=== PATIENT | female | born 1955 | race Two or more races ===

== ENCOUNTER 2018-01-19 10:53 | Outpatient (CLI) | payer MEDICARE, OTHER ==
[~2018-01-19] VITALS: Ht 157.5 cm; Wt 65.3 kg
[2018-01-19] MEDS ORDERED: ATORVASTATIN CA10 MG ORAL (13:14)
[2018-01-19] MEDS ORDERED: LEXAPRO10 MG ORAL (13:14)
[2018-01-19 13:16] VITALS: BP 149/84
--- NOTE | 2018-01-19 14:47 | GI Initial Consult Note ---
History of Present Illness General Date patient seen: Jan 19, 2018 Time patient seen: 14:41 Referring physician: ALIRIO Reason for Consultation: ABDOMINAL PAIN Present Illness HPI 62 year old pleasant female patient presents today with RLQ with occasional LLQ abdominal pain over a period of a month. The patient denies any recent travels. Denies any unintentional weight loss or changes in dietary habits. Denies any diarrhea. States she has complaint of abdominal gas. The patient has no history of endoscopy / colonoscopy. She was recently admitted to [facility] and had an abdominal US performed which was reviewed and found to be unremarkable. No signs of abuse or neglect. Patient is not fall risk. Home Meds Reported Medications Escitalopram Oxalate* (LEXAPRO*) 10 Mg Tablet, ORAL DAILY, TAB 01/19/18 Atorvastatin Calcium* (LIPITOR*) 10 Mg Tablet, ORAL BEDTIME, TAB 01/19/18 Med list reviewed/reconciled: Yes Allergies: Coded Allergies: No Known Allergies (Unverified , 01/19/18) Patient History History Provided By: Patient, Medical Record PM Narrative Depression HLD Past Surgical History: Hemorrhoidal Surgery 2002 Family History Narrative Father with brain CA Mother with Pancreatic CA Social History: Reports: other - daily coffee; Denies: smoking, alcohol use, drug use Review of Systems All Other Systems: negative except mentioned in HPI Physical Exam Vital Signs Date Time Temp Pulse Resp B/P (MAP) Pulse Ox O2 Delivery O2 Flow Rate FiO2 01/19/18 13:16 98.3 68 149/84 95 98.3 Sp02 EP Interpretation: reviewed, normal General Appearance: well appearing, no apparent distress, alert Head: normocephalic EENT: PERRL/EOMI, normal ENT inspection Neck: supple Respiratory: normal breath sounds, no respiratory distress Cardiovascular: normal rate Gastrointestinal: normal inspection, non tender, soft, normal bowel sounds, non -distended Rectal: deferred Genitourinary: no CVA tenderness Musculoskeletal: normal inspection, back normal Neurologic: normal inspection, alert, oriented x3, responsive Psychiatric: normal inspection, judgement/insight normal, memory normal Skin: normal inspection, normal color, no rash, warm/dry, palpation normal, well hydrated Lymphatic: normal inspection, no adenopathy GI: Plan Problems: (1) Colonoscopy planned (2) Bloating symptom (3) Abdominal pain (4) HLD (hyperlipidemia) (5) Depression Plan trial VSL #3 recommend patient to have initial colonoscopy, will schedule at future date if patient agrees. RTC x [address] Fong. Thank you for this patient referral, we will follow. The patient was seen and examined at bedside and all new and available data was reviewed in the patients chart. I agree with the above findings, impression and plan. (Patient seen earlier today. Signature stamp does not reflect patient encounter time.). - MD Janice CrewsE[facility] Hospital[facility] DIRECTOR VALIDATION Jan 19, 2018 14:47
== END 2018-01-19 11:23 | disposition home or self-care (01) ==
LOC: PAN 10:53
DX: R10.31 Right lower quadrant pain (principal); R10.32 Left lower quadrant pain; F32.9 Major depressive disorder, single episode, unspecified; E78.5 Hyperlipidemia, unspecified; R14.0 Abdominal distension (gaseous)
CPT/HCPCS: 99201

== ENCOUNTER 2018-02-05 09:37 | Day surgery (SDC) | payer MEDICARE, OTHER ==
[2018-02-05] VITALS (8 sets, daily range): BP systolic 125–142; BP diastolic 80–88
[~2018-02-05] VITALS: Ht 154.9 cm; Wt 65.8 kg
[~2018-02-05 09:37] MED LIST: ATORVASTATIN CA10 MG ORAL; LEXAPRO10 MG ORAL
--- NOTE | 2018-02-05 10:22 | Pre-Procedure Note/Attestation ---
Pre-Procedure Note/Attestation Complete Prior to Procedure Planned Procedure: not applicable Procedure Narrative: colonoscopy Indications for Procedure Pre-Operative Diagnosis: screening Attestation I attest that I discussed the nature of the procedure; its benefits; risks and complications; and alternatives (and the risks and benefits of such alternatives ), prior to the procedure, with the patient (or the patient's legal major account representative). I attest that, if there was a reasonable possibility of needing a blood transfusion, the patient (or the patient's legal major account representative) was given the [facility] standardized written summary, pursuant to the Mike Neibert Blood Safety Act ([place] Health and Safety Code # 1645, as amended). I attest that I re-evaluated the patient just prior to the surgery and that there has been no change in the patient's H&P, except as documented below: Familia Fong MD Feb 05, 2018 10:22
--- NOTE | 2018-02-05 10:22 | Short Stay Surgery H&P ---
History of Present Illness History of Present Illness Chief Complaint see recent office note HPI Rudy Wills is a 62 year old female who was admitted on for Abdominal Pain Patient History Allergies: Coded Allergies: No Known Allergies (Unverified , 02/05/18) Medication History Scheduled Atorvastatin Calcium* (Lipitor*), Unknown Dose ORAL BEDTIME, (Reported) Escitalopram Oxalate* (Lexapro*), Unknown Dose ORAL DAILY, (Reported) Plan Attestation Are the patient's medical conditions optimized for surgery? Familia Fong MD Feb 05, 2018 10:22
[2018-02-05] MEDS ORDERED: Lidocaine 1% MPF 10mg/ml 5ml ONE (10:30)
[2018-02-05] MEDS ORDERED: Propofol 200mg/20ml IV ONE (10:30)
--- NOTE | 2018-02-05 10:40 | Anethesia Preoperative Eval ---
Anesthesia Pre-op PMH/ROS General Date of Evaluation: Feb 05, 2018 Time of Evaluation: 10:37 Anesthesiologist: Miracle Coto CRNA ASA Score: ASA 2 Mallampati Score Class I : Soft palate, uvula, fauces, pillars visible Class II: Soft palate, uvula, fauces visible Class III: Soft palate, base of uvula visible Class IV: Only hard plate visible Mallampati Classification: Class II Surgeon: Hetal Diagnosis: Abdominal pain Surgical Procedure: Colonoscopy wit biopsies Anesthesia History: none Social History: smoking Family History: no anesthesia problems Allergies: Coded Allergies: No Known Allergies (Unverified , 02/05/18) Medications: see eMAR Patient NPO?: Yes NPO Date: Feb 05, 2018 NPO Time: 00:00 Past Medical History Cardiovascular: Reports: other - Hyperlipidemia; Denies: HTN, CAD, DC, valve dz, arrhythmia Pulmonary: Denies: asthma, COPD, [place], other Gastrointestinal/Genitourinary: Denies: GERD, CRI, ESRD, other Neurologic/Psychiatric: Reports: depression/anxiety; Denies: dementia, CVA, TIA, other Endocrine: Denies: DM, hypothyroidism, steroids, other HEENT: Denies: cataract (L), cataract (R), glaucoma, [place] (L), [place] (R), other Hematology/Immune: Denies: anemia, DVT, bleeding disorder, other Musculoskeletal/Integumentary: Denies: OA, RA, DJD, DDD, edema, other PMH Narrative: as above PSxH Narrative: hemorrhoidectomy, BTL Anesthesia Pre-op Phys. Exam Physician Exam Last Vital Signs Date Time Temp Pulse Resp B/P (MAP) Pulse Ox O2 Delivery O2 Flow Rate FiO2 02/05/18 10:25 98.0 67 18 131/85 98 Room Air 98.0 Constitutional: NAD Neurologic: CN 2-12 intact Cardiovascular: RRR Respiratory: CTA Gastrointestinal: S/NT/ND Airway Exam Mallampati Score: Class I MO: full Neck: no limitations TMD: > 3FB ROM: full Teeth: intact Dentures: no upper, no lower Anesthesia Pre-op A/P Studies Pre-op Studies: EKG - NSR Risk Assessment & Plan Assessment: ASA 2 ok to proceed Plan: MAC Status Change Before Surgery: No Pre-Antibiotics Given Within 1 Hr of Incision: No NnamdiMiracle AUTOMATION DEVELOPER Feb 05, 2018 10:40
[2018-02-05] MEDS ORDERED: GLUCOSAMINE1000 M1 PO (10:42)
[2018-02-05] MEDS ORDERED: VITAMIN D250000 UNI1 ORAL (10:42)
[2018-02-05] MEDS ORDERED: PROBIOTIC1 EAC2 PO (10:42)
--- NOTE | 2018-02-05 11:11 | Endoscopy Procedure Note ---
Endoscopy Procedure Note General Indication for Procedure: screening Procedures Performed: colonoscopy Operative Findings/Diagnosis: one polyp Specimen: yes Pt Tolerated Procedure Well: Yes Estimated Blood Loss: none Anesthesia Anesthesiologist: see chart Anesthesia: MAC Inserted Devices Implant(s) used?: No Quality Quality of Bowel Preparation: Excellent Did scope reach the cecum?: Yes Was there any complications?: No GI Core Measures 50 yrs or older w/o bx or poly: No 10yrs. F/U not recommended: Yes If not recommended, why?: Above average risk 10 yrs. F/U needed: Yes 18 years or older w/prev. colo: No Familia Fong MD Feb 05, 2018 11:11
--- NOTE | 2018-02-05 11:21 | Immediate Post-Op Evaluation ---
Immediate Post-Op Evalulation Immediate Post-Op Evalulation Procedure: Colonoscopy, polypectomy Date of Evaluation: Feb 05, 2018 Time of Evaluation: 11:14 IV Fluids: 0.9NS 400 ml Blood Pressure Systolic: 123 Blood Pressure Diastolic: 82 Pulse Rate: 70 Respiratory Rate: 32 O2 Sat by Pulse Oximetry: 98 Temperature (Fahrenheit): 97.3 Pain Score (1-10): 0 Nausea: No Vomiting: No Complications none Patient Status: awake, reacts, patent Hydration Status: adequate Given Within 1 Hr of Incision: Miracle Baig CRNA Feb 05, 2018 11:20
--- NOTE | 2018-02-05 12:30 | Procedure Note ---
DATE OF PROCEDURE: 02/05/2018 SURGEON: Familia Fong M.D. ANESTHESIOLOGIST: KYLE. REFERRING PHYSICIAN: Dr. Suazo. PROCEDURE: Colonoscopy with snare polypectomy. ANESTHESIA: Per PLOW MECHANIC. INSTRUMENT: Olympus adult flexible colonoscope. INDICATIONS: Screening colonoscopy evaluation. The procedure, risks, benefits, and possible consequences, including hemorrhage, aspiration, perforation and infection, and alternative treatments, were explained to the patient/legal guardian by Dr. Familia Fong and the patient/legal guardian understood and accepted these risks. DESCRIPTION OF PROCEDURE: After informed consent was obtained and the patient was adequately sedated, first rectal exam was performed which was positive for internal hemorrhoids. Then, the scope was advanced from the rectum into the cecum documented by the appendix orifice, ileocecal valve, and right upper quadrant palpation. Quality of prep was very good. The patient had [id number] diverticulosis in the left colon. No obvious diverticulitis. There was a polyp in the rectosigmoid area which measured roughly about 5 mm, removed with cold snare polypectomy technique. No further polyps were seen. Retroflexion of rectum showed evidence of internal hemorrhoids. SUMMARY OF FINDINGS: 1. Diverticulosis. 2. One polyp removed. See above for details. 3. Internal hemorrhoids. RECOMMENDATIONS: 1. Follow up biopsy results. 2. We recommend repeat colonoscopy in 5 years. I want to thank Dr. Suazo for this kind referral. Familia Fong M.D. DR: Tammi JOB#: [id number] CC: Dr. Suazo
--- NOTE | 2018-02-05 14:12 | 48 Hour Post Anesthesia Eval ---
Post Anesthesia Evaluation Procedure: Colonoscopy, polypectomy Date of Evaluation: Feb 05, 2018 Time of Evaluation: 11:42 Blood Pressure Systolic: 142 0: 88 Pulse Rate: 69 Respiratory Rate: 16 Temperature (Fahrenheit): 98 O2 Sat by Pulse Oximetry: 98 Airway: patent Nausea: No Vomiting: No Pain Intensity: 0 Hydration Status: adequate Cardiopulmonary Status: stable Mental Status/LOC: patient returned to baseline Follow-up Care/Observations: per GI Post-Anesthesia Complications: none Follow-up care needed: ready to discharge Miracle Coto CRNA Feb 05, 2018 14:12
--- NOTE | 2018-02-09 16:26 | Cardiology Report ---
APPROVED REPORT EKG Measurement Heart [id number] ME 150P36 [id number] Normal sinus rhythm Normal ECG
== END 2018-02-05 12:20 | disposition home or self-care (01) ==
LOC: GAS 09:37
DX: Z12.11 Encounter for screening for malignant neoplasm of colon (principal); D12.7 Benign neoplasm of rectosigmoid junction; K64.8 Other hemorrhoids; K57.30 Diverticulosis of large intestine without perforation or abscess without bleeding; E78.5 Hyperlipidemia, unspecified; F32.9 Major depressive disorder, single episode, unspecified; F41.9 Anxiety disorder, unspecified; G47.33 Obstructive sleep apnea (adult) (pediatric)
CPT/HCPCS: 45385; 93005; J2704; 94003; 94150

== ENCOUNTER 2018-03-01 13:50 | Outpatient (CLI) | payer MEDICARE, OTHER ==
[~2018-03-01 13:50] MED LIST changes: +GLUCOSAMINE1000 M1 PO; +PROBIOTIC1 EAC2 PO; +VITAMIN D250000 UNI1 ORAL
--- NOTE | 2018-03-01 14:32 | GI Progress Note ---
Assessment/Plan Problems: (1) Abdominal pain ICD Codes: R10.9 - Unspecified abdominal pain SNOMED: 57800284 Status: stable Status Narrative Seen with Dr. Fong. Assessment/Plan SUMMARY OF FINDINGS: 1. Diverticulosis. 2. One polyp removed. See above for details. 3. Internal hemorrhoids. RECOMMENDATIONS: 1. Follow up biopsy results. >> negative 2. We recommend repeat colonoscopy in 5 years. 3. RTC prn The patient was seen and examined at bedside and all new and available data was reviewed in the patients chart. I agree with the above findings, impression and plan. (Patient seen earlier today. Signature stamp does not reflect patient encounter time.). - Familia Fong MD Subjective Gastrointestinal/Abdominal: Reports: no symptoms Objective General Appearance: WD/WN, no apparent distress, alert Cardiovascular: normal rate Respiratory/Chest: normal breath sounds, no respiratory distress Abdominal Exam: normal bowel sounds, non tender, soft Extremities: normal range of motion, non-tender Aiyana Camacho NP Mar 01, 2018 14:32
== END 2018-03-01 14:20 | disposition home or self-care (01) ==
LOC: PAN 13:50
DX: R10.9 Unspecified abdominal pain (principal); K57.90 Diverticulosis of intestine, part unspecified, without perforation or abscess without bleeding; K64.8 Other hemorrhoids
CPT/HCPCS: 99212

== ENCOUNTER 2018-09-08 13:03 | Outpatient (CLI) | payer MEDICARE, OTHER ==
[2018-09-08 13:05] VITALS: BP 121/71
--- NOTE | 2018-09-08 13:26 | General Progress Note ---
Assessment/Plan Problem List: (1) GIB (gastrointestinal bleeding) ICD Codes: K92.2 - Gastrointestinal hemorrhage, unspecified SNOMED: 11955229 (2) Abdominal pain ICD Codes: R10.9 - Unspecified abdominal pain SNOMED: 53329105 (3) Bloating symptom ICD Codes: R14.0 - Abdominal distension (gaseous) SNOMED: 823000135 Assessment/Plan: offered EGD for abd pain and black stools pending patient to call for appointment repeat colon in 2022 Subjective ROS Limited/Unobtainable: Yes Allergies: Coded Allergies: No Known Allergies (Unverified , 02/05/18) Objective General Appearance: alert EENT: normal ENT inspection Neck: supple Cardiovascular: normal rate Respiratory/Chest: lungs clear Abdomen: normal bowel sounds, non tender, soft Extremities: non-tender Familia Fong MD September 08, 2018 13:26
== END 2018-09-08 15:31 | disposition home or self-care (01) ==
LOC: PAN 13:03
DX: K92.2 Gastrointestinal hemorrhage, unspecified (principal); R10.9 Unspecified abdominal pain; R14.0 Abdominal distension (gaseous)

== ENCOUNTER 2018-09-24 10:38 | Day surgery (SDC) | payer MEDICARE, OTHER ==
[2018-09-24] VITALS (8 sets, daily range): BP systolic 117–137; BP diastolic 68–78
[~2018-09-24] VITALS: Ht 154.9 cm; Wt 68.0 kg
--- NOTE | 2018-09-24 06:48 | Anethesia Preoperative Eval ---
Anesthesia Pre-op PMH/ROS General Date of Evaluation: Sep 24, 2018 Time of Evaluation: 06:44 Anesthesiologist: triston ASA Score: ASA 3 Mallampati Score Class I : Soft palate, uvula, fauces, pillars visible Class II: Soft palate, uvula, fauces visible Class III: Soft palate, base of uvula visible Class IV: Only hard plate visible Mallampati Classification: Class II Surgeon: ai Diagnosis: abdominal pain, gerd Surgical Procedure: egd Anesthesia History: none Social History: current smoker Family History: no anesthesia problems Allergies: Coded Allergies: No Known Allergies (Unverified , 02/05/18) Medications: see eMAR Patient NPO?: Yes Past Medical History Cardiovascular: Reports: other - hyperlipidemia, hypercholesterolemia, Gastrointestinal/Genitourinary: Reports: other - gi bleed, abdominal pain, diverticulosis, colonic polyps Neurologic/Psychiatric: Reports: depression/anxiety Anesthesia Pre-op Phys. Exam Physician Exam Constitutional: NAD Neurologic: CN 2-12 intact Cardiovascular: RRR Respiratory: CTA Gastrointestinal: S/NT/ND Airway Exam Mallampati Score: Class II MO: limited Neck: flexible TMD: 2fb ROM: limited Anesthesia Pre-op A/P Labs Labs Test 09/24/18 13:45 White Blood Count 5.7 K/UL (4.8-10.8) Red Blood Count 4.68 M/UL (4.20-5.40) Hemoglobin 13.6 G/DL (12.0-16.0) Hematocrit 40.9 % (37.0-47.0) Mean Corpuscular Volume 87 FL (80-99) Mean Corpuscular Hemoglobin 29.1 PG (27.0-31.0) Mean Corpuscular Hemoglobin Concent 33.3 G/DL (32.0-36.0) Red Cell Distribution Width 11.6 % (11.6-14.8) Platelet Count 228 K/UL (150-450) Mean Platelet Volume 7.5 FL (6.5-10.1) Neutrophils (%) (Auto) 63.0 % (45.0-75.0) Lymphocytes (%) (Auto) 28.1 % (20.0-45.0) Monocytes (%) (Auto) 6.6 % (1.0-10.0) Eosinophils (%) (Auto) 1.5 % (0.0-3.0) Basophils (%) (Auto) 0.9 % (0.0-2.0) Risk Assessment & Plan Assessment: asa3 Plan: mac Status Change Before Surgery: No Pre-Antibiotics Drug: Odette Wilcox MD Sep 24, 2018 06:48
[~2018-09-24 10:38] MED LIST changes: +Atropine Inj 1mg/10ml Syr IV PRN; +DiphenhydrAMINE 50mg/ml Inj IVP PRN; +Midazolam 2mg/2ml Inj IVP PRN; +fentaNYL 100 mcg/2 mL IV PRN
[2018-09-24] MEDS ORDERED: GLUCOSAMINE1000 M1 PO (11:13)
--- NOTE | 2018-09-24 12:26 | Pre-Procedure Note/Attestation ---
Pre-Procedure Note/Attestation Complete Prior to Procedure Planned Procedure: not applicable Procedure Narrative: egd Indications for Procedure Pre-Operative Diagnosis: gib Attestation I attest that I discussed the nature of the procedure; its benefits; risks and complications; and alternatives (and the risks and benefits of such alternatives ), prior to the procedure, with the patient (or the patient's legal entry level marketing representative). I attest that, if there was a reasonable possibility of needing a blood transfusion, the patient (or the patient's legal entry level marketing representative) was given the [facility] standardized written summary, pursuant to the Mike Edgardo Blood Safety Act ([place] Health and Safety Code # 1645, as amended). I attest that I re-evaluated the patient just prior to the surgery and that there has been no change in the patient's H&P, except as documented below: Familia Fong MD Sep 24, 2018 12:26
--- NOTE | 2018-09-24 12:28 | Short Stay Surgery H&P ---
History of Present Illness History of Present Illness Chief Complaint see recent office note HPI Rudy Wills is a 62 year old female who was admitted on for Abdominal Pain, Gerd Patient History Allergies: Coded Allergies: No Known Allergies (Unverified , 02/05/18) Medication History Scheduled Atorvastatin Calcium* (Lipitor*), Unknown Dose ORAL BEDTIME, (Reported) Ergocalciferol (Vitamin D2)* (Vitamin D*), 1,000 UNIT ORAL DAILY, (Reported) Escitalopram Oxalate* (Lexapro*), Unknown Dose ORAL DAILY, (Reported) Glucosamine Sulfate 2KCL (Glucosamine), 1,000 MG PO DAILY, (Reported) Lactobacillus Acidophilus (Probiotic), 1 EACH PO DAILY, (Reported) Physical Exam Vital Signs Last Vital Signs Date Time Temp Pulse Resp B/P (MAP) Pulse Ox O2 Delivery O2 Flow Rate FiO2 09/24/18 11:38 Room Air 09/24/18 11:23 97.6 66 18 130/76 96 Plan Attestation Are the patient's medical conditions optimized for surgery? Familia Fong MD Sep 24, 2018 12:28
[2018-09-24] MEDS ORDERED: Propofol 200mg/20ml IV ONE (13:00)
[2018-09-24] MEDS ORDERED: Lidocaine 1% MPF 10mg/ml 5ml ONE (13:00)
--- NOTE | 2018-09-24 13:09 | Endoscopy Procedure Note ---
Endoscopy Procedure Note General Indication for Procedure: gib Procedures Performed: EGD Operative Findings/Diagnosis: gastritis Specimen: yes Pt Tolerated Procedure Well: Yes Estimated Blood Loss: none Anesthesia Anesthesiologist: triston Anesthesia: MAC Inserted Devices Implant(s) used?: No GI Core Measures 50 yrs or older w/o bx or poly: Not Applicable 10yrs. F/U recommended: Not Applicable Familia Fong MD Sep 24, 2018 13:09
[2018-09-24 14:14] LABS: BASOPHILS % (AUTO) 0.9 % (0.0-2.0); EOSINOPHILS % (AUTO) 1.5 % (0.0-3.0); HEMATOCRIT 40.9 % (37.0-47.0); HEMOGLOBIN 13.6 G/DL (12.0-16.0); LYMPHOCYTES % (AUTO) 28.1 % (20.0-45.0); MEAN CORPUSCULAR VOLUME 87 FL (80-99); MONOCYTES % (AUTO) 6.6 % (1.0-10.0); PLATELET COUNT 228 K/UL (150-450); RED BLOOD COUNT 4.68 M/UL (4.20-5.40); RED CELL DISTRIBUTION WIDTH 11.6 % (11.6-14.8); WHITE BLOOD COUNT 5.7 K/UL (4.8-10.8)
--- NOTE | 2018-09-24 20:00 | Procedure Note ---
DATE OF PROCEDURE: 09/24/2018 SURGEON: Familia Fong M.D. PROCEDURE: Upper endoscopy with biopsy. ANESTHESIA: Per Dr. Juárez. INSTRUMENT: Olympus flexible upper endoscope. INDICATION: GI bleeding, black tarry stools, abdominal pain. REASON FOR PROCEDURE: The procedure, risks, benefits, and possible consequences, including hemorrhage, aspiration, perforation and infection, and alternative treatments, were explained to the patient/legal guardian by Dr. Familia Fong and the patient/legal guardian understood and accepted these risks. DESCRIPTION OF PROCEDURE: After informed consent was obtained and the patient was adequately sedated, Olympus upper endoscope was advanced from the mouth into the second portion of the duodenum and retroflexion was performed in the stomach. The patient had evidence of diffuse gastritis. Random biopsy from antrum and body was obtained to rule out H. pylori infection. No obvious evidence of mass or active source of bleeding was seen. Biopsy from the antrum and body was obtained to rule out H. pylori infection and then subsequently the scope was retrieved. SUMMARY OF FINDINGS: Gastritis, status post biopsy otherwise normal upper endoscopic examination. RECOMMENDATIONS: Follow up biopsy results and treat accordingly. Familia Fong M.D. DR: KEON JOB#: [id number] CC:
--- NOTE | 2018-09-24 22:01 | Immediate Post-Op Evaluation ---
Immediate Post-Op Evalulation Immediate Post-Op Evalulation Procedure: egd/bx Date of Evaluation: Oct 12, 2018 Time of Evaluation: 13:17 IV Fluids: 950ml 0.9ns Blood Products: none Estimated Blood Loss: negligible Blood Pressure Systolic: 129 Blood Pressure Diastolic: 69 Pulse Rate: 80 Respiratory Rate: 18 O2 Sat by Pulse Oximetry: 100 Temperature (Fahrenheit): 98.5 Pain Score (1-10): 0 Nausea: No Vomiting: No Complications none Patient Status: awake, reacts, patent Hydration Status: adequate Drug: Odette Wilcox MD Sep 24, 2018 22:01
--- NOTE | 2018-09-24 22:03 | 48 Hour Post Anesthesia Eval ---
Post Anesthesia Evaluation Procedure: egd/bx Date of Evaluation: Sep 24, 2018 Time of Evaluation: 13:19 Blood Pressure Systolic: 120 0: 71 Pulse Rate: 82 Respiratory Rate: 18 Temperature (Fahrenheit): 98.5 O2 Sat by Pulse Oximetry: 100 Airway: patent Nausea: No Vomiting: No Pain Intensity: 0 Hydration Status: adequate Cardiopulmonary Status: stable Mental Status/LOC: patient returned to baseline Post-Anesthesia Complications: none Follow-up care needed: N/A Odette Simms MD Sep 24, 2018 22:03
== END 2018-09-24 13:55 | disposition home or self-care (01) ==
LOC: GAS 10:38
DX: K92.1 Melena (principal); R10.9 Unspecified abdominal pain; K29.50 Unspecified chronic gastritis without bleeding; Z79.899 Other long term (current) drug therapy; K21.9 Gastro-esophageal reflux disease without esophagitis; E78.5 Hyperlipidemia, unspecified; E78.00 Pure hypercholesterolemia, unspecified; F32.9 Major depressive disorder, single episode, unspecified; F41.9 Anxiety disorder, unspecified; Z86.010 Personal history of colon polyps; F17.200 Nicotine dependence, unspecified, uncomplicated
CPT/HCPCS: 36415; 43239; 85025; 93005; J2704; 94003; 94150

== ENCOUNTER 2018-10-11 13:23 | Outpatient (CLI) | payer MEDICARE, OTHER ==
[~2018-10-11 13:23] MED LIST changes: -Atropine Inj 1mg/10ml Syr IV PRN; -DiphenhydrAMINE 50mg/ml Inj IVP PRN; -Midazolam 2mg/2ml Inj IVP PRN; -fentaNYL 100 mcg/2 mL IV PRN
[2018-10-11 15:28] VITALS: BP 118/78
--- NOTE | 2018-10-13 15:30 | General Progress Note ---
Assessment/Plan Problem List: (1) Bloating symptom ICD Codes: R14.0 - Abdominal distension (gaseous) SNOMED: 648199944 (2) GIB (gastrointestinal bleeding) ICD Codes: K92.2 - Gastrointestinal hemorrhage, unspecified SNOMED: 39021983 (3) Abdominal pain ICD Codes: R10.9 - Unspecified abdominal pain SNOMED: 46973922 (4) Depression ICD Codes: F32.9 - Major depressive disorder, single episode, unspecified SNOMED: 90183942 Assessment/Plan: recent EGD>> gastritis patient was told to come back for a capsule endoscopy if black stool returns Subjective ROS Limited/Unobtainable: Yes Allergies: Coded Allergies: No Known Allergies (Unverified , 02/05/18) Objective General Appearance: alert EENT: normal ENT inspection Neck: supple Cardiovascular: normal rate Respiratory/Chest: decreased breath sounds Abdomen: normal bowel sounds, non tender, soft Extremities: non-tender Familia Fong MD Oct 13, 2018 15:30
== END 2018-10-11 15:23 | disposition home or self-care (01) ==
LOC: PAN 13:23
DX: R14.0 Abdominal distension (gaseous) (principal); K92.2 Gastrointestinal hemorrhage, unspecified; R10.9 Unspecified abdominal pain; F32.9 Major depressive disorder, single episode, unspecified